=== PATIENT | female | born 1950 | race Caucasian/White ===

== ENCOUNTER 2018-08-24 13:17 | Emergency (ER) | payer OTHER ==
[~2018-08-24] VITALS: Ht 165.1 cm; Wt 62.6 kg
[2018-08-24] MEDS ORDERED: LOTREL 5-20 MG1 CAP (13:26)
[2018-08-24] MEDS ORDERED: SYNTHROID75 MCG (13:26)
[2018-08-24] MEDS ORDERED: LIPITOR20 MG (13:27)
== END 2018-08-24 16:47 | disposition home or self-care (01) ==
LOC: ER 13:17
DX: N39.0 Urinary tract infection, site not specified (principal)